=== PATIENT | male | born 1985 | race African-American/Black ===

== ENCOUNTER 2016-10-03 11:49 | Emergency (ER) | payer MEDICAID ==
[~2016-10-03] VITALS: Ht 172.7 cm; Wt 104.0 kg
[2016-10-03] MEDS ORDERED: LIDOCAINE HCL 1% 20ML VIAL (Pyxis) INJ MC ONE (12:30)
[2016-10-03] MEDS ORDERED: AZITHROMYCIN 500 MG TABLET PO ONE (12:30)
[2016-10-03] MEDS ORDERED: CEFTRIAXONE SODIUM 1 G/VIAL IM ONE (12:30)
[2016-10-03 12:33] VITALS: BP 121/72
[2016-10-03 13:19] LABS: CLARITY URINE CLEAR (CLEAR); COLOR URINE YELLOW (YELLOW); GLUCOSE URINE NEGATIVE (NEGATIVE); KETONES URINE NEGATIVE (NEGATIVE); LEUKOCYTE ESTERASE URINE NEGATIVE (NEGATIVE); NITRITE URINE NEGATIVE (NEGATIVE); OCCULT BLOOD URINE NEGATIVE (NEGATIVE); PH URINE 5.5 (4.5-8.0); PROTEIN URINE NEGATIVE (NEGATIVE); SPECIFIC GRAVITY URINE 1.026 (1.005-1.030); UROBILINOGEN URINE 0.2 E.U./dL (0.2-1.0)
== END 2016-10-03 13:50 | disposition home or self-care (01) ==
LOC: ER 13:46
DX: R30.0 Dysuria (principal); R10.9 Unspecified abdominal pain
CPT/HCPCS: 81003; 96372; 99284; J0696; J3490

== ENCOUNTER 2018-11-19 02:26 | Emergency (ER) | payer MEDICAID ==
[~2018-11-19] VITALS: Ht 170.2 cm; Wt 114.5 kg
[2018-11-19] MEDS ORDERED: CEFTRIAXONE SODIUM 250 MG/VIAL IM ONE (06:15)
[2018-11-19] MEDS ORDERED: AZITHROMYCIN 500 MG TABLET PO ONE (06:15)
[2018-11-19 07:55] VITALS: BP 104/64
[2018-11-21 06:15] LABS: CHLAMYDIA TRACHOMATIS NAA Negative (Negative); NEISSERIA GONORRHOEAE NAA Negative (Negative)
== END 2018-11-19 08:23 | disposition home or self-care (01) ==
LOC: ER 02:26
DX: M79.672 Pain in left foot (principal); Z11.3 Encounter for screening for infections with a predominantly sexual mode of transmission; J45.909 Unspecified asthma, uncomplicated; F17.210 Nicotine dependence, cigarettes, uncomplicated
CPT/HCPCS: 73630; 87491; 87591; 96372; 99284; J0696; Z7610

== ENCOUNTER 2019-03-27 16:29 | Emergency (ER) | payer MEDICAID ==
[~2019-03-27] VITALS: Ht 172.7 cm; Wt 102.0 kg
[2019-03-27] MEDS ORDERED: CEFTRIAXONE SODIUM 250 MG/VIAL IM ONE (20:15)
[2019-03-27] MEDS ORDERED: LIDOCAINE HCL 1% 20ML VIAL (Pyxis) INJ INFIL ONE (20:45)
[2019-03-27 20:57] LABS: CLARITY URINE CLEAR (CLEAR); COLOR URINE YELLOW (YELLOW); KETONES URINE TRACE (NEGATIVE); LEUKOCYTE ESTERASE URINE TRACE (NEGATIVE); NITRITE URINE NEGATIVE (NEGATIVE); OCCULT BLOOD URINE NEGATIVE (NEGATIVE); PH URINE 6.5 (4.5-8.0); PROTEIN URINE TRACE (NEGATIVE); SPECIFIC GRAVITY URINE 1.032 (1.005-1.030)
[2019-03-27 21:30] VITALS: BP 128/78
[2019-03-31 04:08] LABS: CHLAMYDIA TRACHOMATIS NAA Negative (Negative); NEISSERIA GONORRHOEAE NAA Negative (Negative)
== END 2019-03-27 22:05 | disposition home or self-care (01) ==
LOC: ER 16:29
DX: K52.9 Noninfective gastroenteritis and colitis, unspecified (principal); N34.2 Other urethritis; J45.909 Unspecified asthma, uncomplicated
CPT/HCPCS: 81003; 87491; 87591; 96372; 99283; J0696; J3490; Z7610

== ENCOUNTER 2019-04-23 23:11 | Emergency (ER) | payer MEDICAID ==
[~2019-04-23] VITALS: Ht 172.7 cm; Wt 105.0 kg
[2019-04-24] MEDS ORDERED: IBUPROFEN 600MG TABLET PO ONE (00:30)
[2019-04-24] MEDS ORDERED: CEFTRIAXONE SODIUM 250 MG/VIAL IM ONE (00:45)
[2019-04-24] MEDS ORDERED: AZITHROMYCIN 500 MG TABLET PO ONE (00:45)
[2019-04-24 02:01] VITALS: BP 123/84
== END 2019-04-24 02:02 | disposition home or self-care (01) ==
LOC: ER 23:11
DX: Z00.01 Encounter for general adult medical examination with abnormal findings (principal); S60.222A Contusion of left hand, initial encounter; W22.01XA Walked into wall, initial encounter; Y93.9 Activity, unspecified; Y92.9 Unspecified place or not applicable
CPT/HCPCS: 73130; 96372; 99283; J0696